=== PATIENT | female | born 1965 | race Caucasian/White ===

== ENCOUNTER 2017-03-05 11:02 | Emergency (ER) | payer BC ==
--- NOTE | 2017-03-05 11:24 | EDM.PDOC ---
ED HPI GENERAL MEDICAL PROBLEM - General Chief Complaint: General Stated Complaint: forehead wound , facial pain Time Seen by Provider: 03/05/17 11:10 Source of Information: Reports: Patient History Limitations: Reports: No limitations - History of Present Illness INITIAL COMMENTS - FREE TEXT/NARRATIVE: The patient presents with complaint of "an infected zit" of her right forehead. She reports she noted the "zit" on Tuesday and had scratched and attempted to "pop" it and over the course of the week it continued to get larger, more painful, and infected. She denies other symptoms or complaints. - Related Data Allergies Allergy/AdvReac Type Severity Reaction Status Date / Time No Known Allergies Allergy Verified 03/05/17 11:25 Home Meds: Home Meds Albuterol [Proair HFA] 2 puff INH Q4HR PRN 03/05/17 [History] Escitalopram [Lexapro] 10 mg PO QPM 03/05/17 [History] Levothyroxine Sodium [Levothyroxine Sodium] 137 mcg PO BEDTIME 03/05/17 [History ] Montelukast Sodium 10 mg PO BEDTIME 03/05/17 [History] Omeprazole 20 mg PO DAILY 03/05/17 [History] Varenicline Tartrate [Chantix] 1 tab PO ASDIRECTED 03/05/17 [History] atorvaSTATin [Lipitor] 20 mg PO BEDTIME 03/05/17 [History] Past Medical History - Past Health History Medical/Surgical History: Denies Medical/Surgical History ED ROS GENERAL - Review of Systems Review Of Systems: ROS reveals no pertinent complaints other than HPI. ED EXAM, GENERAL - Physical Exam Exam: See Below Exam Limited By: No limitations General Appearance: alert, WD/WN, no apparent distress Eye Exam: bilateral eye: EOMI, PERRL Ears: normal external exam, normal canal, hearing grossly normal, normal TMs Ear Exam: bilateral ear: auricle normal, canal normal, TM normal Nose: normal inspection, normal mucosa, no blood Throat/Mouth: Normal inspection, Normal lips, Normal teeth, Normal gums, Normal oropharynx, Normal voice, No airway compromise Head: atraumatic, normocephalic Neck: normal inspection, supple, non-tender, full range of motion Respiratory/Chest: no respiratory distress, lungs clear, normal breath sounds, no accessory muscle use, chest non-tender Cardiovascular: normal peripheral pulses, regular rate, rhythm, no edema, no gallop, no murmur, no rub GI/Abdominal: normal bowel sounds, soft, non tender, no organomegaly, no distention, no abnormal bruit Back Exam: normal inspection, full range of motion. No: CVA tenderness (L), CVA tenderness (R), paraspinal tenderness, vertebral tenderness Extremities: normal inspection, normal range of motion, non-tender, no pedal edema, normal capillary refill Neurological: alert, oriented, CN II-XII intact, normal cognition, normal gait, normal reflexes, no motor/sensory deficits Psychiatric: normal affect, normal mood Skin Exam: Warm, Dry, Normal color, No rash, Other (There is a furuncle of the right forehead measuring approximately 1 cm with surrounding cellulitis measuring about 2 cm with induration of the skin but no palpable fluctuance. No extension to orbit. ) Departure - Departure Time of Disposition: 11:23 Disposition: Home, Self-Care 01 Clinical Impression: Furuncle of forehead, Cellulitis of forehead Forms: ED Department Discharge - Assessment/Plan Assessment:: Furuncle of right forehead, 1 cm. Cellulitis of right forehead, 2 cm circumference. Plan: 1. Reassured patient no abscess at this time. 2. Take-home prescription for Bactrim DS tabs, 1 tab PO BID, 6 tabs (3 day supply). 3. Prescription for Bactrim DS tabs, 1 tab PO BID, 14 tabs, (7 day supply) for total of 10 day course to begin when take-home prescription complete. 4. OTC ibuprofen 400-800 mg every 6 hours as needed for pain/swelling. 5. Followup with PCP in 7-10 days if symptoms persist or sooner if symptoms worsen.
[2017-03-05 11:33] VITALS: BP 147/92
== END 2017-03-05 11:55 | disposition home or self-care (01) ==
LOC: LL.ED 11:02
DX: L03.211 Cellulitis of face (principal); L02.02 Furuncle of face; Z79.899 Other long term (current) drug therapy
CPT/HCPCS: 99283